=== PATIENT | female | born 1950 | race Caucasian/White ===

== ENCOUNTER 2016-12-24 12:13 | Observation (INO) | payer OTHER, BC ==
[~2016-12-24] VITALS: Ht 162.6 cm; Wt 103.0 kg
[~2016-12-24 12:13] MED LIST: ADVAIR 100/501 DISK IH; AMBIEN10 MG PO; AMBIEN5 MG PO; ATIVAN0.5 MG PO; BACTRIM,SEPT1 TABLET PO; BUSPAR5 MG PO; CEPACOL SORE T1 EAC9 MM; CIPRO250 MG PO; COLESTID1 GM PO; CYANOCOBALAM1000 MCG PO; CYMBALTA60 MG PO; DIALYVITE 3,001 EACH PO; DILAUDID2 MG PO; DILAUDID4 MG PO; DUONEB 2.5-0.5 M3 ML AEROSOL; EFFEXOR37.5 MG PO; EFFEXOR50 MG PO; ELIQUIS5 MG PO; ERGOCALCIF50000 UNIT PO; FLAGYL500 MG PO; FLEET ENEMA-AD118 ML PR; HEP-LOCK F100 UNIT/1 IV; HEPARIN SO5000 UNITS SQ; HYDROCODON-ACE1 EAC7 PO; LASIX40 MG PO; LIDODERM 5% P1 PATCH TD; LIPITOR40 MG PO; LOPID600 MG PO; LORAZEPAM0.5 MG PO; LYRICA75 MG PO; MECLIZINE HCL25 MG PO; METHENAMINE HIPP1 G1 PO; METHOCARBAMOL500 MG PO; METOPROLOL TART25 MG PO; MILK OF MAGNESI10 ML PO; MS CONTIN,ORAMO15 M1 PO; NABI650T PO; NEURONTIN400 MG PO; NEURONTIN600 MG PO; NEURONTIN800 MG PO; NEXIUM40 MG PO; NOVOLOG PE100 UNITS/ SC; OMEPRAZOLE40 M1 PO; POLYTRIM EYE DR10 ML BOTH EYES; PROMETHAZINE HC25 M1 PO; PROTEIN POWDER454 G1 PO; PROVENTIL,2.5 MG/3 M IH; PRUNE JUICE PO; RENVELA800 MG PO; ROBAXIN500 MG PO; ROBITUSSIN100 MG/5 M PO; SENSIPAR30 MG PO; SINGULAIR10 MG PO; TRESIBA FL200 UNIT/1 SC; TYLENOL ARTHRI650 MG PO; TYLENOL REGULA325 MG PO; TYLENOL WITH C1 EACH PO; URIBEL CAPSULE1 EACH PO; VITAMIN C125 MG PO; VITRON-C TABLE1 EACH PO; ZYVOX600 MG PO
[2016-12-24 13:24] LABS: HEMATOCRIT 45.4 % (36.0-46.0); INSTRUMENT ABS NEUTROPHIL CT 8.9 K/uL; MCH 28.6 PG (29.0-34.0); MCHC 31.3 G/DL (30.0-36.0); MCV 91.3 FL (83-99); PLATELET COUNT 306 K/uL (156-360); RBC DIS.WIDTH-CV 20.9 % (11.8-14.6); RBC DIS.WIDTH-SD 67.2 % (39-53); RED BLOOD COUNT 4.97 M/uL (3.80-5.20); WHITE BLOOD COUNT 11.1 K/uL (4.1-10.2)
[2016-12-24 13:31] LABS: CHLORIDE 98 mEq/L (99-109); POTASSIUM 3.4 mEq/L (3.7-5.4); SODIUM 141 mEq/L (136-147)
[2016-12-24 13:33] LABS: GLUCOSE 164 mg/dL (70-99); INTER. NORMALIZED RATIO 1.1; PROTHROMBIN TIME 11.1 (9.2-11.2); PTT 28.1 (25-32)
[2016-12-24 13:35] LABS: ANION GAP 13 MEQ/L (2-14)
[2016-12-24 13:37] LABS: GFR ESTIMATE (CALCULATED) 23 mL/min/
[2016-12-24 13:38] LABS: UREA NITROGEN (BUN) 22 mg/dL (9-23)
[2016-12-24 13:44] LABS: TROP-I INTERPRETATION NEGATIVE; TROPONIN-I < 0.01 ng/mL (0.0-0.30)
[2016-12-24] MEDS ORDERED: DURAGESIC75 MCG TD (14:53)
[2016-12-24] MEDS ORDERED: DURAGESIC50 MCG TD (14:54)
[2016-12-24] MEDS ORDERED: DURAGESIC12 MCG TD (14:54)
[2016-12-24] MEDS ORDERED: DIALYVITE 3,001 EACH PO (14:57)
[2016-12-24] MEDS ORDERED: ELIQUIS5 MG PO (14:58)
[2016-12-24] MEDS ORDERED: LASIX20 MG PO (14:59)
[2016-12-24] MEDS ORDERED: COMPAZINE10 MG PO (15:15)
[2016-12-24] MEDS ORDERED: VITAMIN D32000 UNI1 PO (15:15)
[2016-12-24] MEDS ORDERED: GLYDO11 ML MM (15:18)
[2016-12-24 15:51] LABS: BASOPHIL COUNT 0.1 K/uL (0-0.1); EOSINOPHIL (%) 0.9 % (0-5); EOSINOPHIL COUNT 0.1 K/uL (0-0.3); IMMATURE GRANULOCYTE (%) 0.4 % (0.0-0.7); IMMATURE GRANULOCYTE COUNT 0.1 K/uL; LYMPHOCYTE COUNT 1.5 K/uL (1.0-2.8); MONOCYTE (%) 4.4 % (3-12); MONOCYTE COUNT 0.5 K/uL (0-0.8); NEUTROPHIL (%) 80.3 % (45-76); NEUTROPHIL COUNT 8.9 K/uL (1.8-6.4)
[2016-12-24] MEDS ORDERED: TRESIBA FL100 UNIT/1 SC ×2 (18:46)
[2016-12-24 19:15] VITALS: BP 137/66
[2016-12-24 20:51] LABS: TROP-I INTERPRETATION NEGATIVE; TROPONIN-I 0.01 ng/mL (0.0-0.30)
[2016-12-25] VITALS: BP 137/66
[2016-12-25 02:10] LABS: TROP-I INTERPRETATION NEGATIVE; TROPONIN-I < 0.01 ng/mL (0.0-0.30)
[2016-12-25 04:00] VITALS: BP 149/71
[2016-12-25 07:14] LABS: ANION GAP 15 MEQ/L (2-14); CHLORIDE 96 MEQ/L (99-109); GFR ESTIMATE (CALCULATED) 22 mL/min/; GLUCOSE 237 mg/dL (70-99); SAMPLE HEMOLYSIS CHECK 1; SAMPLE ICTERIC CHECK 0; SAMPLE LIPEMIA CHECK 0; SODIUM 140 MEQ/L (136-147); UREA NITROGEN (BUN) 26 mg/dL (9-23)
[2016-12-25 07:16] LABS: POTASSIUM 3.6 MEQ/L (3.7-5.4)
[2016-12-25 09:20] VITALS: BP 195/93
[2016-12-25 10:36] VITALS: BP 139/66
[2016-12-25 12:54] LABS: POINT-OF-CARE METER ID UU13113831
== END 2016-12-25 14:43 | disposition home or self-care (01) ==
LOC: EME 12:13 → EDOF 16:26 → 5WEST 16:26 → EDOF 16:26 → 5WEST 19:05
PROVIDERS: Emergency Medicine; Internal Medicine; Student in an Organized Health Care Education/Training Program
DX: R07.89 Other chest pain (principal); E87.6 Hypokalemia; I12.0 Hypertensive chronic kidney disease with stage 5 chronic kidney disease or end stage renal disease; N18.6 End stage renal disease; J44.9 Chronic obstructive pulmonary disease, unspecified; Z99.2 Dependence on renal dialysis; E78.5 Hyperlipidemia, unspecified; E11.9 Type 2 diabetes mellitus without complications; Z86.711 Personal history of pulmonary embolism; E66.9 Obesity, unspecified; Z68.38 Body mass index [BMI] 38.0-38.9, adult
CPT/HCPCS: 71010; 78582; 80048; 82948; 84484; 85025; 85610; 85730; 93005; 99281; 99285; A9540; A9567; G0378; J1815; J2270

== ENCOUNTER 2017-03-06 00:28 | Observation (INO) | payer OTHER, BC ==
[~2017-03-06] VITALS: Ht 162.6 cm; Wt 102.0 kg
[~2017-03-06 00:28] MED LIST changes: +COMPAZINE10 MG PO; +DURAGESIC12 MCG TD; +DURAGESIC50 MCG TD; +DURAGESIC75 MCG TD; +GLYDO11 ML MM; +LASIX20 MG PO; +TRESIBA FL100 UNIT/1 SC; +VITAMIN D32000 UNI1 PO
[2017-03-06 01:57] LABS: HEMATOCRIT 32.3 % (36.0-46.0); MCH 28.7 PG (29.0-34.0); MCHC 32.2 G/DL (30.0-36.0); MEAN PLAT.VOLUME 10.6 uM^3 (9.5-12.4); PLATELET COUNT 235 K/uL (156-360); RBC DIS.WIDTH-CV 17.1 % (11.8-14.6); RBC DIS.WIDTH-SD 55.5 % (39-53); RED BLOOD COUNT 3.63 M/uL (3.80-5.20); WHITE BLOOD COUNT 9.4 K/uL (4.1-10.2)
[2017-03-06 02:11] LABS: CHLORIDE 95 mEq/L (99-109); POTASSIUM 3.8 mEq/L (3.7-5.4); SODIUM 139 mEq/L (136-147)
[2017-03-06 02:13] LABS: GLUCOSE 188 mg/dL (70-99)
[2017-03-06 02:14] LABS: ANION GAP 12 MEQ/L (2-14)
[2017-03-06 02:15] LABS: TOTAL BILIRUBIN 0.6 mg/dL (0.0-1.0)
[2017-03-06 02:16] LABS: ALKALINE PHOSPHATASE 353 IU/L (3-129); D-DIMER ELISA 0.55 mg/L FEU (< 0.57); PROTHROMBIN TIME 10.2 (9.2-11.2); PTT 25.9 (25-32)
[2017-03-06 02:17] LABS: GFR ESTIMATE (CALCULATED) 17 mL/min/
[2017-03-06 02:18] LABS: UREA NITROGEN (BUN) 29 mg/dL (9-23)
[2017-03-06 02:20] LABS: LIPASE 46 U/L (1.0-51.0)
[2017-03-06 02:21] LABS: TROP-I INTERPRETATION NEGATIVE; TROPONIN-I < 0.01 ng/mL (0.0-0.30)
[2017-03-06] MEDS ORDERED: LOPRESSOR50 MG PO (07:26)
[2017-03-06] MEDS ORDERED: HYDROMORPHONE HC2 MG PO (07:28)
[2017-03-06 07:45] VITALS: BP 95/50
[2017-03-06 10:31] LABS: TROP-I INTERPRETATION NEGATIVE; TROPONIN-I 0.01 ng/mL (0.0-0.30)
[2017-03-06 12:31] VITALS: BP 90/55
[2017-03-06 13:38] LABS: POINT-OF-CARE METER ID UU13113831
[2017-03-06 15:08] LABS: TROP-I INTERPRETATION NEGATIVE; TROPONIN-I < 0.01 ng/mL (0.0-0.30)
[2017-03-06 16:15] VITALS: BP 105/51
== END 2017-03-06 17:48 | disposition home or self-care (01) ==
LOC: EME → EDBD 00:28 → EDOF 06:13 → 5WEST 07:29
PROVIDERS: Emergency Medicine; Nurse Practitioner Adult Health; Student in an Organized Health Care Education/Training Program
DX: R07.89 Other chest pain (principal); G89.29 Other chronic pain; M54.6 Pain in thoracic spine; D64.9 Anemia, unspecified; I12.0 Hypertensive chronic kidney disease with stage 5 chronic kidney disease or end stage renal disease; N18.6 End stage renal disease; Z99.2 Dependence on renal dialysis; J44.9 Chronic obstructive pulmonary disease, unspecified; Z86.711 Personal history of pulmonary embolism; E78.5 Hyperlipidemia, unspecified; F41.9 Anxiety disorder, unspecified; F32.9 Major depressive disorder, single episode, unspecified; E11.9 Type 2 diabetes mellitus without complications; E66.9 Obesity, unspecified; Z68.38 Body mass index [BMI] 38.0-38.9, adult; G47.33 Obstructive sleep apnea (adult) (pediatric); M19.90 Unspecified osteoarthritis, unspecified site
CPT/HCPCS: 71010; 80053; 82948; 83690; 84484; 85027; 85379; 85610; 85730; 93005; 94799; 99281; 99284; G0378; J1170; J1815; J2405; J7050

== ENCOUNTER 2017-03-08 09:46 | Inpatient (IN) | payer OTHER, BC ==
[~2017-03-08] VITALS: Ht 162.6 cm; Wt 105.8 kg
[~2017-03-08 09:46] MED LIST changes: +HYDROMORPHONE HC2 MG PO; +LOPRESSOR50 MG PO
[2017-03-08 12:20] LABS: EOSINOPHIL (%) 1.6 % (0-5); EOSINOPHIL COUNT 0.1 K/uL (0-0.3); HEMATOCRIT 33.2 % (36.0-46.0); IMMATURE GRANULOCYTE (%) 0.5 % (0.0-0.7); INSTRUMENT ABS NEUTROPHIL CT 6.7 K/uL; LYMPHOCYTE COUNT 1.3 K/uL (1.0-2.8); MCH 29.1 PG (29.0-34.0); MCHC 32.5 G/DL (30.0-36.0); MCV 89.5 FL (83-99); MEAN PLAT.VOLUME 9.8 uM^3 (9.5-12.4); MONOCYTE (%) 5.6 % (3-12); MONOCYTE COUNT 0.5 K/uL (0-0.8); NEUTROPHIL (%) 77.4 % (45-76); NEUTROPHIL COUNT 6.7 K/uL (1.8-6.4); PLATELET COUNT 224 K/uL (156-360); RBC DIS.WIDTH-CV 16.8 % (11.8-14.6); RBC DIS.WIDTH-SD 54.9 % (39-53); RED BLOOD COUNT 3.71 M/uL (3.80-5.20); WHITE BLOOD COUNT 8.6 K/uL (4.1-10.2)
[2017-03-08 12:36] LABS: CHLORIDE 103 mEq/L (99-109); POTASSIUM 4.4 mEq/L (3.7-5.4); SODIUM 141 mEq/L (136-147)
[2017-03-08 12:39] LABS: ANION GAP 11 MEQ/L (2-14)
[2017-03-08 12:41] LABS: GFR ESTIMATE (CALCULATED) 15 mL/min/
[2017-03-08 12:42] LABS: UREA NITROGEN (BUN) 42 mg/dL (9-23)
[2017-03-08 12:43] LABS: PROTHROMBIN TIME 10.6 (9.2-11.2); PTT 26.4 (25-32)
[2017-03-08 12:44] LABS: GLUCOSE 101 mg/dL (70-99)
[2017-03-08 12:48] LABS: TROP-I INTERPRETATION NEGATIVE; TROPONIN-I 0.01 ng/mL (0.0-0.30)
[2017-03-08 15:10] LABS: TROP-I INTERPRETATION NEGATIVE; TROPONIN-I < 0.01 ng/mL (0.0-0.30)
[2017-03-08] MEDS ORDERED: ATORVASTATIN CA40 MG PO (16:29)
[2017-03-08] MEDS ORDERED: LEVOFLOXACIN500 MG PO (16:32)
[2017-03-08] MEDS ORDERED: METOPROLOL SUCC50 MG PO (16:38)
[2017-03-08 17:02] VITALS: BP 173/77
[2017-03-08 17:23] LABS: POINT-OF-CARE METER ID UU14162513
[2017-03-08 19:00] VITALS: BP 125/59
[2017-03-08 22:20] LABS: POINT-OF-CARE METER ID UU14162513
[2017-03-08 22:43] LABS: TROP-I INTERPRETATION NEGATIVE; TROPONIN-I 0.01 ng/mL (0.0-0.30)
[2017-03-09 00:47] VITALS: BP 126/71
[2017-03-09 01:18] LABS: TROP-I INTERPRETATION NEGATIVE; TROPONIN-I 0.01 ng/mL (0.0-0.30)
[2017-03-09 04:00] VITALS: BP 154/61
[2017-03-09 07:45] VITALS: BP 130/63
[2017-03-09 07:52] LABS: POINT-OF-CARE METER ID UU14162513
[2017-03-09 07:56] LABS: MCH 30.2 PG (29.0-34.0); MCHC 32.9 G/DL (30.0-36.0); MCV 91.6 FL (83-99); MEAN PLAT.VOLUME 10.7 uM^3 (9.5-12.4); PLATELET COUNT 244 K/uL (156-360); RBC DIS.WIDTH-SD 56.9 % (39-53); RED BLOOD COUNT 3.71 M/uL (3.80-5.20); WHITE BLOOD COUNT 7.7 K/uL (4.1-10.2)
[2017-03-09 08:48] LABS: ANION GAP 14 MEQ/L (2-14); CHLORIDE 99 MEQ/L (99-109); GFR ESTIMATE (CALCULATED) 16 mL/min/; POTASSIUM 4.6 MEQ/L (3.7-5.4); SAMPLE HEMOLYSIS CHECK 0; SAMPLE ICTERIC CHECK 0; SAMPLE LIPEMIA CHECK 0; SODIUM 141 MEQ/L (136-147); UREA NITROGEN (BUN) 45 mg/dL (9-23)
[2017-03-09 08:49] LABS: GLUCOSE 238 mg/dL (70-99)
[2017-03-09 09:00] LABS: TROP-I INTERPRETATION NEGATIVE; TROPONIN-I < 0.01 ng/mL (0.0-0.30)
[2017-03-09 09:28] LABS: ADD MIUA? YES; BILIRUBIN NEGATIVE; BLOOD SMALL; COLOR YELLOW ((YELLOW)); GLUCOSE (STRIP) NEGATIVE; KETONES NEGATIVE; LEUKOCYTES LARGE; NITRITE NEGATIVE; PROTEIN (STRIP) NEGATIVE; SPECIFIC GRAVITY 1.023 (1.000-1.030); UROBILINOGEN 0.2 MG/DL (0.2-1.0)
[2017-03-09 09:44] LABS: BACTERIA NONE SEEN /HPF; BUDDING YEAST 3+; EPITHELIAL CELLS RARE /HPF; MUCUS NONE SEEN /LPF; RED BLOOD CELLS 0-5 /HPF (0-5); UCUL ADDED? YES; WHITE BLOOD CELLS TNTC /HPF (0-5); WHITE BLOOD CELLS CLUMP MANY /HPF (0-5)
[2017-03-09 13:00] VITALS: BP 170/81
[2017-03-09 13:10] LABS: POINT-OF-CARE METER ID UU14162513
[2017-03-09 17:09] LABS: POINT-OF-CARE METER ID UU13113831
[2017-03-09 19:16] VITALS: BP 143/80
[2017-03-09 21:22] LABS: POINT-OF-CARE METER ID UU14162513
[2017-03-10] VITALS (7 sets, daily range): BP systolic 122–156; BP diastolic 61–96
[2017-03-10 08:19] LABS: POINT-OF-CARE METER ID UU13113700
[2017-03-10 13:06] LABS: POINT-OF-CARE METER ID UU13113700
[2017-03-10 17:13] LABS: POINT-OF-CARE METER ID UU14162513
[2017-03-10 21:57] LABS: POINT-OF-CARE METER ID UU13113700
[2017-03-11 02:48] VITALS: BP 131/70
[2017-03-11 08:37] VITALS: BP 162/80
[2017-03-11 09:17] LABS: POINT-OF-CARE METER ID UU14162513
[2017-03-11 10:37] LABS: EOSINOPHIL (%) 0.6 % (0-5); EOSINOPHIL COUNT 0.1 K/uL (0-0.3); HEMATOCRIT 31.9 % (36.0-46.0); IMMATURE GRANULOCYTE (%) 0.4 % (0.0-0.7); INSTRUMENT ABS NEUTROPHIL CT 6.1 K/uL; LYMPHOCYTE COUNT 1.2 K/uL (1.0-2.8); MCH 29.3 PG (29.0-34.0); MCHC 33.2 G/DL (30.0-36.0); MCV 88.1 FL (83-99); MEAN PLAT.VOLUME 10.6 uM^3 (9.5-12.4); MONOCYTE (%) 4.5 % (3-12); MONOCYTE COUNT 0.4 K/uL (0-0.8); NEUTROPHIL (%) 79.3 % (45-76); NEUTROPHIL COUNT 6.1 K/uL (1.8-6.4); PLATELET COUNT 255 K/uL (156-360); RBC DIS.WIDTH-CV 16.8 % (11.8-14.6); RBC DIS.WIDTH-SD 54.2 % (39-53); RED BLOOD COUNT 3.62 M/uL (3.80-5.20); WHITE BLOOD COUNT 7.7 K/uL (4.1-10.2)
[2017-03-11 10:52] LABS: CHLORIDE 94 mEq/L (99-109); POTASSIUM 4.1 mEq/L (3.7-5.4); SODIUM 135 mEq/L (136-147)
[2017-03-11 10:53] LABS: GLUCOSE 321 mg/dL (70-99)
[2017-03-11 10:55] LABS: ANION GAP 16 MEQ/L (2-14)
[2017-03-11 10:57] LABS: GFR ESTIMATE (CALCULATED) 14 mL/min/
[2017-03-11 10:58] LABS: UREA NITROGEN (BUN) 31 mg/dL (9-23)
[2017-03-11 14:33] LABS: POINT-OF-CARE METER ID UU14162513
[2017-03-11 15:42] VITALS: BP 127/70
[2017-03-11 17:50] LABS: POINT-OF-CARE METER ID UU14162513
[2017-03-11 19:32] VITALS: BP 146/74
[2017-03-11 21:10] LABS: POINT-OF-CARE METER ID UU13113831
[2017-03-12 00:21] VITALS: BP 135/75
[2017-03-12 04:30] VITALS: BP 115/66
[2017-03-12 07:33] LABS: ANION GAP 14 MEQ/L (2-14); CHLORIDE 91 MEQ/L (99-109); GFR ESTIMATE (CALCULATED) 20 mL/min/; GLUCOSE 164 mg/dL (70-99); POTASSIUM 3.3 MEQ/L (3.7-5.4); SAMPLE HEMOLYSIS CHECK 0; SAMPLE ICTERIC CHECK 0; SAMPLE LIPEMIA CHECK 0; SODIUM 137 MEQ/L (136-147); UREA NITROGEN (BUN) 21 mg/dL (9-23)
[2017-03-12 09:30] VITALS: BP 149/68
[2017-03-12 11:55] VITALS: BP 145/79
[2017-03-12 12:43] LABS: POINT-OF-CARE METER ID UU13113831
[2017-03-12 15:33] VITALS: BP 147/83
[2017-03-12 21:02] VITALS: BP 130/72
[2017-03-13 00:37] VITALS: BP 130/80
[2017-03-13 04:39] VITALS: BP 145/77
[2017-03-13 07:04] VITALS: BP 146/71
[2017-03-13 11:10] VITALS: BP 131/67
[2017-03-13] MEDS ORDERED: HYDROMORPHONE HC4 MG PO (11:25)
[2017-03-13] MEDS ORDERED: CYMBALTA60 MG PO (11:25)
[2017-03-13] MEDS ORDERED: LYRICA50 MG PO (11:25)
[2017-03-13] MEDS ORDERED: DURAGESIC75 MCG TD (11:25)
[2017-03-13] MEDS ORDERED: DILAUDID2 MG PO (11:25)
[2017-03-13] MEDS ORDERED: ASPIR-LOW81 MG PO (11:25)
== END 2017-03-13 13:25 | DRG 551 ==
LOC: EME 09:46 → 5WEST 15:49 → EDOF 15:49 → 5WEST 16:58 → 5EAST 03-13 00:23
PROVIDERS: Emergency Medicine; Hospitalist; Internal Medicine Nephrology
PROC: 5A1D60Z (ICD-10-PCS; principal; 2017-03-09)
DX: M54.9 Dorsalgia, unspecified (principal); I12.0 Hypertensive chronic kidney disease with stage 5 chronic kidney disease or end stage renal disease; N18.6 End stage renal disease; E11.22 Type 2 diabetes mellitus with diabetic chronic kidney disease; G89.29 Other chronic pain; M54.12 Radiculopathy, cervical region; J44.9 Chronic obstructive pulmonary disease, unspecified; R07.89 Other chest pain; Z99.2 Dependence on renal dialysis; E78.5 Hyperlipidemia, unspecified; Z86.711 Personal history of pulmonary embolism; K21.9 Gastro-esophageal reflux disease without esophagitis; Z79.4 Long term (current) use of insulin; G47.00 Insomnia, unspecified; M47.892 Other spondylosis, cervical region; M48.02 Spinal stenosis, cervical region; M50.31 Other cervical disc degeneration, high cervical region; M81.0 Age-related osteoporosis without current pathological fracture; F32.9 Major depressive disorder, single episode, unspecified; F41.9 Anxiety disorder, unspecified; D63.1 Anemia in chronic kidney disease; R53.81 Other malaise
CPT/HCPCS: 71010; 71275; 72125; 72128; 72141; 73030; 73060; 78452; 80048; 80053; 80069; 81003; 82948; 83690; 84484; 85025; 85027; 85379; 85610; 85730; 87077; 87086; 87186; 93005; 93017; 94799; 99202; 99281; 99284; 99285; A9500; G0378; J1170; J1270; J1644; J1815; J1885; J2060; J2270; J2405; J2785; J7050

== ENCOUNTER 2017-03-31 12:51 | Day surgery (SDC) | payer OTHER ==
[~2017-03-31] VITALS: Ht 162.6 cm; Wt 105.6 kg
[~2017-03-31 12:51] MED LIST changes: +ASPIR-LOW81 MG PO; +ATORVASTATIN CA40 MG PO; +HYDROMORPHONE HC4 MG PO; +LEVOFLOXACIN500 MG PO; +LYRICA50 MG PO; +METOPROLOL SUCC50 MG PO
[2017-03-31] MEDS ORDERED: HYDROMORPHONE HC4 MG PO (13:41)
[2017-03-31] MEDS ORDERED: HYDROMORPHONE HC8 MG PO (13:42)
[2017-03-31] MEDS ORDERED: TRESIBA FL100 UNIT/1 SC ×2 (13:55)
[2017-03-31 14:28] LABS: POINT-OF-CARE METER ID UU13113696
[2017-03-31 15:38] LABS: POINT-OF-CARE METER ID UU13113819
[2017-03-31 15:42] LABS: METH RESISTANT S AUREUS PCR POSITIVE (NEGATIVE)
[2017-03-31 16:03] LABS: PROBE CHECK PASS
[2017-03-31 16:20] LABS: POINT-OF-CARE METER ID UU13113819
[2017-04-01 09:40] LABS: POINT-OF-CARE METER ID UU13113696
== END 2017-03-31 16:45 ==
LOC: CATH 12:51
PROVIDERS: Surgery
DX: T82.858A Stenosis of other vascular prosthetic devices, implants and grafts, initial encounter (principal); E11.22 Type 2 diabetes mellitus with diabetic chronic kidney disease; N18.6 End stage renal disease; Z99.2 Dependence on renal dialysis; K21.9 Gastro-esophageal reflux disease without esophagitis; Z86.711 Personal history of pulmonary embolism; Z95.828 Presence of other vascular implants and grafts; Z88.0 Allergy status to penicillin; Z88.5 Allergy status to narcotic agent; Y83.2 Surgical operation with anastomosis, bypass or graft as the cause of abnormal reaction of the patient, or of later complication, without mention of misadventure at the time of the procedure
CPT/HCPCS: 82948; 87641; C1725; C1769; C1894; J1644; J2250; J3010

== ENCOUNTER → 2017-05-03 | Outpatient (CLI) | payer OTHER ==
[~2017-05-03] MED LIST changes: +GLUCO BURST37.5 GM PO; +HYDROMORPHONE HC8 MG PO; +KEFLEX500 MG PO; +LOPRESSOR25 MG PO
== END ==
LOC: MRI 07:45 → RAD 08:30
DX: E83.119 Hemochromatosis, unspecified (principal)
CPT/HCPCS: 74181

== ENCOUNTER 2017-05-07 08:06 | Day surgery (SDC) | payer OTHER ==
[~2017-05-07] VITALS: Ht 162.6 cm; Wt 88.1 kg
[2017-05-07 09:10] LABS: POINT-OF-CARE METER ID UU13113696
[2017-05-07 10:26] LABS: METH RESISTANT S AUREUS PCR POSITIVE (NEGATIVE)
[2017-05-07 10:33] LABS: PROBE CHECK PASS
[2017-05-07 12:20] LABS: TROP-I INTERPRETATION NEGATIVE; TROPONIN-I 0.01 ng/mL (0.0-0.30)
[2017-05-07 14:00] VITALS: BP 108/58
[2017-05-07 14:03] LABS: ANION GAP 14 MEQ/L (2-14); CHLORIDE 95 MEQ/L (99-109); GFR ESTIMATE (CALCULATED) 30 mL/min/; GLUCOSE 148 mg/dL (70-99); POTASSIUM 3.6 MEQ/L (3.7-5.4); SAMPLE HEMOLYSIS CHECK 0; SAMPLE ICTERIC CHECK 0; SAMPLE LIPEMIA CHECK 0; SODIUM 141 MEQ/L (136-147); UREA NITROGEN (BUN) 9 mg/dL (9-23)
[2017-05-07 16:52] LABS: POINT-OF-CARE USER ID ENVKC36
[2017-05-07 18:54] LABS: TROP-I INTERPRETATION NEGATIVE; TROPONIN-I < 0.01 ng/mL (0.0-0.30)
[2017-05-07 19:57] VITALS: BP 115/60
[2017-05-08 00:13] VITALS: BP 136/64
[2017-05-08 01:38] LABS: TROP-I INTERPRETATION NEGATIVE; TROPONIN-I < 0.01 ng/mL (0.0-0.30)
[2017-05-08 04:47] VITALS: BP 142/65
[2017-05-08 07:02] LABS: ANION GAP 9 MEQ/L (2-14); CHLORIDE 96 MEQ/L (99-109); GFR ESTIMATE (CALCULATED) 22 mL/min/; GLUCOSE 167 mg/dL (70-99); POTASSIUM 4.2 MEQ/L (3.7-5.4); SAMPLE HEMOLYSIS CHECK 0; SAMPLE ICTERIC CHECK 0; SAMPLE LIPEMIA CHECK 0; SODIUM 142 MEQ/L (136-147); UREA NITROGEN (BUN) 16 mg/dL (9-23)
[2017-05-08 07:29] LABS: POINT-OF-CARE METER ID UU13113781
[2017-05-08 11:23] LABS: POINT-OF-CARE METER ID UU13113781
[2017-05-08 11:44] VITALS: BP 126/64
[2017-05-08 16:18] LABS: POINT-OF-CARE METER ID UU13113781
[2017-05-08 17:55] VITALS: BP 132/66
== END 2017-05-08 18:44 ==
LOC: CATH 08:06 → 4EAST 12:05 → 2SOUTH 12:05 → 4EAST 13:56
PROVIDERS: Internal Medicine; Surgery
PROC: 057Y3ZZ Dilation of Upper Vein, Percutaneous Approach (ICD-10-PCS; principal; 2017-05-07)
DX: T82.41XA Breakdown (mechanical) of vascular dialysis catheter, initial encounter (principal); I12.0 Hypertensive chronic kidney disease with stage 5 chronic kidney disease or end stage renal disease; E11.22 Type 2 diabetes mellitus with diabetic chronic kidney disease; N18.6 End stage renal disease; Z99.2 Dependence on renal dialysis; J44.9 Chronic obstructive pulmonary disease, unspecified; E78.5 Hyperlipidemia, unspecified; R07.89 Other chest pain; K21.9 Gastro-esophageal reflux disease without esophagitis; Z86.711 Personal history of pulmonary embolism; Z79.01 Long term (current) use of anticoagulants; Z79.4 Long term (current) use of insulin; Z88.0 Allergy status to penicillin; Z99.3 Dependence on wheelchair
CPT/HCPCS: 71010; 80048; 82948; 84484; 87641; 93005; 94799; C1725; C1769; C1894; G0378; J1644; J1815; J2250; J3010

== ENCOUNTER 2017-06-13 02:57 | Emergency (ER) | payer OTHER ==
[~2017-06-13] VITALS: Ht 162.6 cm; Wt 98.7 kg
[2017-06-13 04:33] LABS: BILIRUBIN NEGATIVE; COLOR YELLOW ((YELLOW)); GLUCOSE (STRIP) NEGATIVE; KETONES NEGATIVE; LEUKOCYTES MODERATE; NITRITE NEGATIVE; PH, URINE 6.5 (5-8); PROTEIN (STRIP) 100; SPECIFIC GRAVITY 1.015 (1.000-1.030); UROBILINOGEN 0.2 MG/DL (0.2-1.0)
[2017-06-13 04:34] LABS: ADD MIUA? YES; BLOOD MODERATE
[2017-06-13 04:38] LABS: ADD MIUA? YES; BILIRUBIN NEGATIVE; BLOOD MODERATE; COLOR AMBER ((YELLOW)); GLUCOSE (STRIP) NEGATIVE; KETONES NEGATIVE; LEUKOCYTES LARGE; NITRITE NEGATIVE; PROTEIN (STRIP) 100; SPECIFIC GRAVITY 1.011 (1.000-1.030); UROBILINOGEN 0.2 MG/DL (0.2-1.0)
[2017-06-13 04:42] LABS: RED BLOOD CELLS TNTC /HPF (0-5); WHITE BLOOD CELLS TNTC /HPF (0-5)
[2017-06-13] MEDS ORDERED: BACTRIM,SEPT1 TABLET PO (05:13)
[2017-06-13 05:58] VITALS: BP 100/64
== END 2017-06-13 06:00 ==
LOC: EME 02:57
PROVIDERS: Physician Assistant
DX: S00.11XA Contusion of right eyelid and periocular area, initial encounter (principal); N39.0 Urinary tract infection, site not specified; W05.0XXA Fall from non-moving wheelchair, initial encounter; Y92.129 Unspecified place in nursing home as the place of occurrence of the external cause; Z79.01 Long term (current) use of anticoagulants; N18.9 Chronic kidney disease, unspecified; Z85.07 Personal history of malignant neoplasm of pancreas; K21.9 Gastro-esophageal reflux disease without esophagitis; Z93.3 Colostomy status; Z88.0 Allergy status to penicillin; Z88.6 Allergy status to analgesic agent
CPT/HCPCS: 70450; 81003; 87077; 87086; 87186; 99281; 99285

== ENCOUNTER 2017-07-20 01:54 | Emergency (ER) | payer OTHER ==
[~2017-07-20] VITALS: Ht 162.6 cm; Wt 95.0 kg
[2017-07-20 06:19] VITALS: BP 152/78
== END 2017-07-20 08:11 | disposition home or self-care (01) ==
LOC: EME 01:54
DX: S02.31XA Fracture of orbital floor, right side, initial encounter for closed fracture (principal); S01.81XA Laceration without foreign body of other part of head, initial encounter; S63.501A Unspecified sprain of right wrist, initial encounter; W01.198A Fall on same level from slipping, tripping and stumbling with subsequent striking against other object, initial encounter; J44.9 Chronic obstructive pulmonary disease, unspecified; N18.9 Chronic kidney disease, unspecified; Z99.2 Dependence on renal dialysis; Z79.4 Long term (current) use of insulin; F32.9 Major depressive disorder, single episode, unspecified; F41.9 Anxiety disorder, unspecified; K21.9 Gastro-esophageal reflux disease without esophagitis; Z85.07 Personal history of malignant neoplasm of pancreas; Z88.0 Allergy status to penicillin; Z88.6 Allergy status to analgesic agent
CPT/HCPCS: 70450; 70486; 72125; 72131; 73090; 73130; 73564; 80048; 85025; 85610; 85730; 99281; 99285

== ENCOUNTER 2017-08-11 07:43 | Day surgery (SDC) | payer OTHER ==
[~2017-08-11] VITALS: Ht 162.6 cm; Wt 96.6 kg
[~2017-08-11 07:43] MED LIST changes: +LYRICA100 MG PO; +MELATONIN5 M1 PO
[2017-08-11] MEDS ORDERED: AMBIEN5 MG PO (08:15)
[2017-08-11] MEDS ORDERED: ASPIR 8181 M1 PO (08:16)
[2017-08-11] MEDS ORDERED: GABAPENTIN100 MG PO (08:19)
[2017-08-11] MEDS ORDERED: TRESIBA FL100 UNIT/1 SC (08:22)
[2017-08-11] MEDS ORDERED: RENVELA800 MG PO (08:25)
[2017-08-11 09:07] LABS: POINT-OF-CARE METER ID UU13113819
[2017-08-11 09:27] LABS: METH RESISTANT S AUREUS PCR POSITIVE (NEGATIVE); PROBE CHECK PASS
== END 2017-08-11 09:53 ==
LOC: CATH 07:43
PROVIDERS: Surgery
PROC: B51W1ZZ Fluoroscopy of Dialysis Shunt/Fistula using Low Osmolar Contrast (ICD-10-PCS; principal; 2017-08-11)
PROC: 05HY33Z Insertion of Infusion Device into Upper Vein, Percutaneous Approach (ICD-10-PCS; principal; 2017-08-11)
PROC: 3E03317 Introduction of Other Thrombolytic into Peripheral Vein, Percutaneous Approach (ICD-10-PCS; principal; 2017-08-11)
PROC: 057Y3ZZ Dilation of Upper Vein, Percutaneous Approach (ICD-10-PCS; principal; 2017-08-11)
DX: T82.858A Stenosis of other vascular prosthetic devices, implants and grafts, initial encounter (principal); E11.22 Type 2 diabetes mellitus with diabetic chronic kidney disease; N18.6 End stage renal disease; K21.9 Gastro-esophageal reflux disease without esophagitis; Z99.2 Dependence on renal dialysis; Z79.4 Long term (current) use of insulin; Z79.01 Long term (current) use of anticoagulants; Z86.711 Personal history of pulmonary embolism
CPT/HCPCS: 82948; 87641; C1725; C1769; C1894; J1644; J2250; J3010

== ENCOUNTER 2017-09-15 13:00 | Day surgery (SDC) | payer OTHER ==
[~2017-09-15] VITALS: Ht 162.6 cm; Wt 94.3 kg
[~2017-09-15 13:00] MED LIST changes: +ASPIR 8181 M1 PO; +GABAPENTIN100 MG PO
[2017-09-15] MEDS ORDERED: COMPAZINE10 MG PO (13:54)
[2017-09-15] MEDS ORDERED: GLUCOSE GEL38 GM PO (13:55)
[2017-09-15 13:56] LABS: POINT-OF-CARE METER ID UU13113696; POINT-OF-CARE USER ID HMLCJM07
[2017-09-15 15:01] LABS: METH RESISTANT S AUREUS PCR POSITIVE (NEGATIVE)
[2017-09-15 15:07] LABS: PROBE CHECK PASS
== END 2017-09-15 16:35 ==
LOC: CATH 13:00
PROVIDERS: Surgery
DX: T82.858A Stenosis of other vascular prosthetic devices, implants and grafts, initial encounter (principal); E11.22 Type 2 diabetes mellitus with diabetic chronic kidney disease; N18.6 End stage renal disease; Z99.2 Dependence on renal dialysis; K21.9 Gastro-esophageal reflux disease without esophagitis; Z79.4 Long term (current) use of insulin
CPT/HCPCS: 82948; 87641; C1725; C1769; C1894; J1644; J2250; J3010

== ENCOUNTER 2017-12-21 08:35 | Day surgery (SDC) | payer OTHER ==
[~2017-12-21] VITALS: Ht 162.6 cm; Wt 96.0 kg
[~2017-12-21 08:35] MED LIST changes: +BIOFREEZE TP; +CALMOSEPTINE O3.5 GM TP; +CLOBETASOL PROP60 GM TP; +GLUCOSE GEL38 GM PO
== END 2017-12-21 10:26 | disposition home or self-care (01) ==
LOC: CATH 08:35
PROVIDERS: Surgery
DX: T82.318A Breakdown (mechanical) of other vascular grafts, initial encounter (principal); Y83.2 Surgical operation with anastomosis, bypass or graft as the cause of abnormal reaction of the patient, or of later complication, without mention of misadventure at the time of the procedure; E11.22 Type 2 diabetes mellitus with diabetic chronic kidney disease; N18.6 End stage renal disease; Z99.2 Dependence on renal dialysis; K21.9 Gastro-esophageal reflux disease without esophagitis; Z86.711 Personal history of pulmonary embolism; Z79.4 Long term (current) use of insulin; Z79.01 Long term (current) use of anticoagulants
CPT/HCPCS: 82948; 87641; C1725; C1769; C1894; J1644; J2250; J3010

== ENCOUNTER 2018-01-05 13:25 | Day surgery (SDC) | payer OTHER ==
[~2018-01-05] VITALS: Ht 162.6 cm; Wt 97.0 kg
[~2018-01-05 13:25] MED LIST changes: +DULCOLAX10 MG PR; -LASIX20 MG PO; +LASIX80 MG PO; +MILK OF MAGN PO; +VITAMIN B-6100 MG PO; +VITAMIN D31000 UNIT PO
[2018-01-05 14:01] VITALS: BP 135/65
[2018-01-05 14:59] LABS: CHLORIDE 97 mEq/L (99-109); POTASSIUM 4.7 mEq/L (3.7-5.4); SODIUM 140 mEq/L (136-147)
[2018-01-05 15:01] LABS: GLUCOSE 151 mg/dL (70-99)
[2018-01-05 15:05] LABS: CREATININE 4.5 mg/dL (0.6-1.3); GFR ESTIMATE (CALCULATED) 10 mL/min/
[2018-01-05 15:06] LABS: UREA NITROGEN (BUN) 40 mg/dL (9-23)
[2018-01-05 17:40] VITALS: BP 106/64
== END 2018-01-05 18:57 | disposition home or self-care (01) ==
LOC: SDC 13:25
PROVIDERS: Anesthesiology; Orthopaedic Surgery Hand Surgery
DX: G56.02 Carpal tunnel syndrome, left upper limb (principal); G56.22 Lesion of ulnar nerve, left upper limb; I12.9 Hypertensive chronic kidney disease with stage 1 through stage 4 chronic kidney disease, or unspecified chronic kidney disease; N18.6 End stage renal disease; Z99.2 Dependence on renal dialysis; E11.22 Type 2 diabetes mellitus with diabetic chronic kidney disease; Z85.07 Personal history of malignant neoplasm of pancreas; Z86.718 Personal history of other venous thrombosis and embolism; Z86.711 Personal history of pulmonary embolism; Z79.01 Long term (current) use of anticoagulants; Z79.4 Long term (current) use of insulin; Z98.1 Arthrodesis status; Z79.891 Long term (current) use of opiate analgesic; Z79.82 Long term (current) use of aspirin
CPT/HCPCS: 80048; 82948; 87641; J0131; J0690; J1170; J2250; J2405; J2765; S0020

== ENCOUNTER 2018-04-13 08:56 | Day surgery (SDC) | payer OTHER ==
[~2018-04-13] VITALS: Ht 162.6 cm; Wt 103.0 kg
[~2018-04-13 08:56] MED LIST changes: +ALLERGY RELIE15.8 ML BOTH NARES; +ASCORBIC ACID500 M3 PO; +B COMPLEX #11 EACH PO; +BACLOFEN5 MG PO; +GAS-X ULTRA ST180 MG PO; +HUMALOG100 UNIT/2 SC; -LASIX80 MG PO; -NEXIUM40 MG PO; +PRILOSEC20 MG PO; +PROBIOTIC1 EAC3 PO; +ROBITUSSIN NIG237 ML PO; +ZINC SULFATE220 M1 PO
[2018-04-13 09:30] LABS: HEMATOCRIT 34.1 % (36.0-46.0); MCH 31.8 PG (29.0-34.0); MCHC 32.3 G/DL (30.0-36.0); MCV 98.6 FL (83-99); PLATELET COUNT 189 K/uL (156-360); RBC DIS.WIDTH-CV 17.5 % (11.8-14.6); RBC DIS.WIDTH-SD 61.5 % (39-53); RED BLOOD COUNT 3.46 M/uL (3.80-5.20); WHITE BLOOD COUNT 10.1 K/uL (4.1-10.2)
[2018-04-13 09:47] VITALS: BP 139/67
[2018-04-13 10:00] LABS: CHLORIDE 100 MEQ/L (99-109); POTASSIUM 4.3 MEQ/L (3.7-5.4); SODIUM 139 MEQ/L (136-147)
[2018-04-13 10:05] LABS: CREATININE 5.6 MG/DL (0.6-1.3); GFR ESTIMATE (CALCULATED) 8 mL/min/; GLUCOSE 137 mg/dL (70-99); UREA NITROGEN (BUN) 53 mg/dL (9-23)
[2018-04-13 19:40] VITALS: BP 93/59
== END 2018-04-13 20:00 | disposition home or self-care (01) ==
LOC: SDC 08:56
PROVIDERS: Surgery
DX: T82.41XA Breakdown (mechanical) of vascular dialysis catheter, initial encounter (principal); Y83.2 Surgical operation with anastomosis, bypass or graft as the cause of abnormal reaction of the patient, or of later complication, without mention of misadventure at the time of the procedure; E11.22 Type 2 diabetes mellitus with diabetic chronic kidney disease; N18.6 End stage renal disease; Z99.2 Dependence on renal dialysis; K21.9 Gastro-esophageal reflux disease without esophagitis; Z86.711 Personal history of pulmonary embolism; Z79.01 Long term (current) use of anticoagulants; Z79.4 Long term (current) use of insulin; Z79.82 Long term (current) use of aspirin
CPT/HCPCS: 80048; 82948; 85027; 87641; 93005; J0690; J1644; J2250; J2720; J3010